=== PATIENT | female | born 2000 | race Caucasian/White ===

== ENCOUNTER 2018-12-27 19:26 | Emergency (ER) | payer BC ==
[2018-12-27] MEDS ORDERED: Phenazopyridine 95 MG Tab PO ONE (20:00)
[2018-12-27] MEDS ORDERED: Acetaminophen/HYDROcodone 325-5 MG Tab PO ONE (20:06)
[2018-12-27] MEDS ORDERED: cefTRIAXone 1 GM Vial IM ONE (20:13)
[2018-12-27] MEDS ORDERED: Lidocaine 1% 2 ML ONE (20:29)
[2018-12-27] MEDS ORDERED: cefTRIAXone 1 GM, Lidocaine 1% 2.1 ML IM SCH ×2 (20:45)
--- NOTE | 2018-12-27 20:55 | EDM.PDOC ---
ED HPI GENERAL MEDICAL PROBLEM - General Chief Complaint: Genitourinary Problem Stated Complaint: LOWER RIGHT SIDE BACK PAIN Time Seen by Provider: 12/27/18 19:48 Source of Information: Reports: Patient History Limitations: Reports: No Limitations - History of Present Illness INITIAL COMMENTS - FREE TEXT/NARRATIVE: 18 y/o female presents to ER with cc dysuria for the past 3 days. She denies fever or chills. She does report right lower back pain. She has been taking AZO while did help some. Onset Date: 12/24/18 Onset Time: 16:00 Duration: Getting Worse Location: Reports: Back Quality: Reports: Ache, Burning Severity: Mild Improves with: Reports: None Worsens with: Reports: None Associated Symptoms: Reports: Other (dysuria). Denies: Fever/Chills, Loss of Appetite, Nausea/Vomiting Right Flank Pain Score (Numeric/FACES): 6 - Related Data Allergies Allergy/AdvReac Type Severity Reaction Status Date / Time amoxicillin Allergy Rash Verified 12/27/18 19:44 Home Meds: Home Meds Acetaminophen with Codeine [Tylenol with Codeine #3 Tablet] 1 - 2 each PO Q6HR PRN 3 Days #16 tablet 12/27/18 [Rx] Escitalopram [Lexapro] 20 mg PO DAILY 12/27/18 [History] Nitrofurantoin Monohyd/M-Cryst [Macrobid 100 mg Capsule] 100 mg PO BID 7 Days # 14 capsule 12/27/18 [Rx] Norgestimate-Ethinyl Estradiol [Alleghany-Linyah 28 Tablet] 1 tab PO DAILY 12/27/18 [ History] Phenazopyridine HCl [Pyridium] 200 mg PO BID PRN 4 Days #8 tablet 12/27/18 [Rx] buPROPion [Wellbutrin] 75 mg PO DAILY 12/27/18 [History] Past Medical History - Past Health History Medical/Surgical History: Denies Medical/Surgical History Psychiatric History: Reports: Anxiety, Depression - Past Surgical History HEENT Surgical History: Reports: Oral Surgery, Tonsillectomy Social & Family History - Family History Family Medical History: Noncontributory - Tobacco Use Smoking Status *Q: Never Smoker - Caffeine Use Caffeine Use: Reports: Coffee - Recreational Drug Use Recreational Drug Use: No ED ROS GENERAL - Review of Systems Review Of Systems: See Below Constitutional: Denies: Fever, Chills HEENT: Reports: No Symptoms Respiratory: Reports: No Symptoms Cardiovascular: Reports: No Symptoms Endocrine: Reports: No Symptoms GI/Abdominal: Denies: Abdominal Pain : Reports: Dysuria Musculoskeletal: Reports: Back Pain (right lower back pain) Skin: Reports: No Symptoms Neurological: Reports: No Symptoms Psychiatric: Reports: No Symptoms Hematologic/Lymphatic: Reports: No Symptoms Immunologic: Reports: No Symptoms ED EXAM, GI/ABD - Physical Exam Exam: See Below Exam Limited By: No Limitations General Appearance: Alert, WD/WN, No Apparent Distress Respiratory/Chest: No Respiratory Distress, Lungs Clear, Normal Breath Sounds, No Accessory Muscle Use, Chest Non-Tender Cardiovascular: Normal Peripheral Pulses, Regular Rate, Rhythm, No Edema, No Gallop, No JVD, No Murmur, No Rub GI/Abdominal Exam: Normal Bowel Sounds, Non-Tender, No Organomegaly, No Distention, No Abnormal Bruit, No Mass, Pelvis Stable Back Exam: Normal Inspection, Full Range of Motion, Other (right lower back tenderness noted. ) Extremities: Normal Inspection, Normal Range of Motion, Non-Tender, No Pedal Edema, Normal Capillary Refill Neurological: Alert, Oriented, Normal Cognition, Normal Gait, No Motor/Sensory Deficits Psychiatric: Normal Affect, Normal Mood, Tearful, Other (crying appears to be in pain. ) Skin Exam: Warm, Dry, Intact, Normal Color, No Rash Lymphatic: No Adenopathy Course - Vital Signs Last Recorded V/S: Last Vital Signs Temp 98.2 F 12/27/18 19:41 Pulse 94 12/27/18 19:41 Resp 18 12/27/18 19:41 BP 152/68 H 12/27/18 19:41 Pulse Ox 97 12/27/18 19:41 - Orders/Labs/Meds Orders: Active Orders 24 hr Category Date Time Status cefTRIAXone [Rocephin] 1 gm Med 12/27/18 20:45 Active Lidocaine 1% [Xylocaine 1%] 2.1 ml IM Q24H Medication Orders Ceftriaxone Sodium 1 gm/ (Lidocaine HCl 2.1 ml) 0 gm IM Q24H VERNA Last Admin: 12/27/18 20:37 Dose: 1 inj Labs: Laboratory Tests 12/27/18 12/27/18 Range/Units 19:50 19:50 Urine Color Yellow (Yellow) Urine Appearance Slt cloudy H (Clear) Urine pH 6.5 (5.0-8.0) Ur Specific [place]rtle 1.020 (1.005-1.030) Urine Protein 3+ H (Negative) Urine Glucose (UA) Negative (Negative) Urine Ketones 1+ H (Negative) Urine Occult Blood 3+ H (Negative) Urine Nitrite Negative (Negative) Urine Bilirubin Negative (Negative) Urine Urobilinogen 0.2 (0.2-1.0) Ur Leukocyte Esterase 2+ H (Negative) Urine RBC 5-10 H (0-5) /hpf Urine WBC 50-75 H (0-5) /hpf Urine WBC Clumps Few (NOT SEEN) /hpf Ur Epithelial Cells 0-5 (0-5) /hpf Urine Bacteria Moderate H (FEW) /hpf Urine Mucus Rare (FEW) /hpf Urine HCG, Qual Negative (NEGATIVE) Meds: Medications Generic Name Dose Route Start Last Admin Trade Name Freq PRN Reason Stop Dose Admin Ceftriaxone Sodium 1 gm/ 0 gm 12/27/18 20:45 12/27/18 20:37 Lidocaine HCl 2.1 ml IM 1 inj Q24H VERNA Administration Discontinued Medications Generic Name Dose Route Start Last Admin Trade Name Freq PRN Reason Stop Dose Admin Hydrocodone Bitart/Acetaminophen 1 tab 12/27/18 20:06 12/27/18 20:12 Dalton 325-5 Mg PO 12/27/18 20:07 1 tab ONETIME ONE Administration Ceftriaxone Sodium 1 gm 12/27/18 20:13 Rocephin IM 12/27/18 20:14 ONETIME ONE Lidocaine HCl Confirm 12/27/18 20:29 12/27/18 20:39 Xylocaine-Mpf 1% Administered 12/27/18 20:30 Not Given Dose 2 mls @ as directed .ROUTE .STK-MED ONE Phenazopyridine HCl 95 mg 12/28/18 09:00 Urinary Pain Relief PO TIDPC VERNA Phenazopyridine HCl 95 mg 12/27/18 20:00 12/27/18 20:12 Urinary Pain Relief PO 12/27/18 20:01 95 mg ONETIME ONE Administration - Re-Assessments/Exams Free Text/Narrative Re-Assessment/Exam: 12/27/18 20:51 18 y/o female presents to ER with cc dysuria for the past 3 days. Her urinalysis is consistent with UTI. + 3 protein, + 3 blood + 1 ketone + 2 leukocyte esterase 50 -75 WBC. She received Rocephin, Pyridium and Dalton and her condition improved. I will discharge home with Macrobid for outpatient antibiotic therapy. I will discharge home with Tylenol # 3 for pain. I instructed her not to take this medication and drink, drive or operate machinery while taking this medications. Instructed her to follow up with her PCP. She verbalized understanding and is comfortable with plan for discharge. Departure - Departure Time of Disposition: 20:55 Disposition: Home, Self-Care 01 Condition: Good Clinical Impression: UTI, Urinary tract infectious disease - Discharge Information Prescriptions: Acetaminophen with Codeine [Tylenol with Codeine #3 Tablet] 1 - 2 each PO Q6HR PRN 3 Days #16 tablet PRN Reason: Pain (Mild 1-3) Nitrofurantoin Monohyd/M-Cryst [Macrobid 100 mg Capsule] 100 mg PO BID 7 Days # 14 capsule Phenazopyridine HCl [Pyridium] 200 mg PO BID PRN 4 Days #8 tablet PRN Reason: Dysuria Referrals: Cheyenne Joshi, PANEL LAMINATOR [Primary Care Provider] - Additional Instructions: You have been diagnosis with UTI. Take Macrobid as directed. Take Tylenol # 3 as needed for pain. While taking this medication, do not drink, drive or operate machinery. Follow up with your PCP. Return to the ER for any new or acute worsening symptoms. - My Orders Last 24 Hours: My Active Orders 12/27/18 20:45 cefTRIAXone [Rocephin] 1 gm Lidocaine 1% [Xylocaine 1%] 2.1 ml IM Q24H - Assessment/Plan Last 24 Hours: My Active Orders 12/27/18 20:45 cefTRIAXone [Rocephin] 1 gm Lidocaine 1% [Xylocaine 1%] 2.1 ml IM Q24H
[2018-12-28] MEDS ORDERED: Phenazopyridine 95 MG Tab PO SCH (09:00)
== END 2018-12-27 21:05 | disposition home or self-care (01) ==
LOC: JD.ED 19:26
DX: N39.0 Urinary tract infection, site not specified (principal); F41.9 Anxiety disorder, unspecified; F32.9 Major depressive disorder, single episode, unspecified; Z88.1 Allergy status to other antibiotic agents
CPT/HCPCS: 81001; 81025; 96372; 99284; A9270; J0696; J2001; 99283

== ENCOUNTER 2018-12-28 09:09 | Emergency (ER) | payer BC ==
[2018-12-28] MEDS ORDERED: Ketorolac 30 MG/ML SDV IM ONE (09:47)
[2018-12-28] MEDS ORDERED: Ondansetron 4 MG Tab.DIS PO ONE (09:47)
[2018-12-28] MEDS ORDERED: Ketorolac 30 MG/ML SDV IVPUSH ONE (09:55)
[2018-12-28] MEDS ORDERED: Ondansetron 4 MG/2 ML SDV IVPUSH ONE (09:55)
--- NOTE | 2018-12-28 09:58 | EDM.PDOC ---
ED HPI GENERAL MEDICAL PROBLEM - General Chief Complaint: Abdominal Pain Stated Complaint: ABDOMINAL PAIN Time Seen by Provider: 12/28/18 09:27 Source of Information: Reports: Patient History Limitations: Reports: No Limitations - History of Present Illness INITIAL COMMENTS - FREE TEXT/NARRATIVE: 18 yo F comes in today after being diagnosed with UTI last night (sent home with Macrobid and Tylenol #3) with new onset sharp substernal/epigastric pain. She states the pain started this morning after she woke up, describes it as 8-9/ 10 sharp pain that randomly comes and goes, certain laying positions can make it feel better at times, nothing makes it worse. She did try her Tylenol #3 that was prescribed yesterday with no relief. She has not eaten anything new recently and has no h/o gastric reflux or GERD. Never had a pain like this before. She has not eaten anything today but was able to drink some water. She also c/o F/C (temperature not taken at home and is 98.7 here), nausea and SOB d/ t pleuritic pain. She denies vomiting, diarrhea, constipation, or any other symptoms at this time. Last normal BM was yesterday AM. No recent trauma. No history of abdominal surgeries. PCP is SAUL Jones. Epigastric Pain Score (Numeric/FACES): 10 - Related Data Allergies Allergy/AdvReac Type Severity Reaction Status Date / Time amoxicillin Allergy Rash Verified 12/28/18 09:29 Home Meds: Home Meds Acetaminophen with Codeine [Tylenol with Codeine #3 Tablet] 1 - 2 each PO Q6HR PRN 3 Days #16 tablet 12/27/18 [Rx] Escitalopram [Lexapro] 20 mg PO DAILY 12/27/18 [History] Nitrofurantoin Monohyd/M-Cryst [Macrobid 100 mg Capsule] 100 mg PO BID 7 Days # 14 capsule 12/27/18 [Rx] Norgestimate-Ethinyl Estradiol [Rutherford-Linyah 28 Tablet] 1 tab PO DAILY 12/27/18 [ History] Phenazopyridine HCl [Pyridium] 200 mg PO BID PRN 4 Days #8 tablet 12/27/18 [Rx] buPROPion [Wellbutrin] 75 mg PO DAILY 12/27/18 [History] Ondansetron [Zofran ODT] 4 mg PO Q6H PRN #8 tab.dis 12/28/18 [Rx] Past Medical History - Past Health History Medical/Surgical History: Denies Medical/Surgical History Psychiatric History: Reports: Anxiety, Depression - Past Surgical History HEENT Surgical History: Reports: Oral Surgery, Tonsillectomy Social & Family History - Family History Family Medical History: Noncontributory - Tobacco Use Smoking Status *Q: Never Smoker - Caffeine Use Caffeine Use: Reports: Coffee - Recreational Drug Use Recreational Drug Use: No ED ROS GENERAL - Review of Systems Review Of Systems: See Below Constitutional: Reports: Fever (no documented fever), Chills, Decreased Appetite (d/t nausea) HEENT: Reports: No Symptoms Respiratory: Reports: Shortness of Breath (d/t chest pain), Pleuritic Chest Pain. Denies: Cough Cardiovascular: Reports: Chest Pain (epigastric/substernal). Denies: Blood Pressure Problem, Palpitations Endocrine: Reports: No Symptoms GI/Abdominal: Reports: Abdominal Pain (epigastric/substernal), Decreased Appetite (d/t nausea), Nausea. Denies: Constipation, Diarrhea, Hematochezia, Vomiting : Reports: No Symptoms Musculoskeletal: Reports: No Symptoms Skin: Reports: No Symptoms Neurological: Reports: No Symptoms Psychiatric: Reports: No Symptoms ED EXAM, GI/ABD - Physical Exam Exam: See Below Exam Limited By: No Limitations General Appearance: Alert, WD/WN, Moderate Distress Eyes: Bilateral: Normal Appearance, EOMI Ears: Normal External Exam, Hearing Grossly Normal Nose: Normal Inspection, Normal Mucosa, No Blood Throat/Mouth: Normal Inspection, Normal Lips, Normal Teeth, Normal Gums, Normal Oropharynx, Normal Voice, No Airway Compromise Head: Atraumatic, Normocephalic Neck: Normal Inspection, Supple, Non-Tender, Full Range of Motion Respiratory/Chest: No Respiratory Distress, Lungs Clear, Normal Breath Sounds, No Accessory Muscle Use, Other (Chest TTP substernal). No: Wheezing Cardiovascular: Normal Peripheral Pulses, Regular Rate, Rhythm, No Edema, No Gallop, No JVD, No Murmur, No Rub GI/Abdominal Exam: Soft, No Organomegaly, No Distention, No Abnormal Bruit, No Mass, Pelvis Stable, Tender (epigastric/substernal), Abnormal Bowel Sounds ( hyperactive). No: Guarding, Rigid, Rebound Back Exam: Normal Inspection Neurological: Alert, Oriented, CN II-XII Intact, Normal Cognition, Normal Gait, Normal Reflexes, No Motor/Sensory Deficits Psychiatric: Tearful Skin Exam: Warm, Dry, Intact, Normal Color, No Rash Course - Vital Signs Last Recorded V/S: Last Vital Signs Temp 98.7 F 12/28/18 09:26 Pulse 71 12/28/18 09:26 Resp 16 12/28/18 09:26 BP 138/74 12/28/18 09:26 Pulse Ox 97 12/28/18 09:26 - Orders/Labs/Meds Orders: Active Orders 24 hr Category Date Time Status EKG Documentation Completion [RC] ASDIRECTED Care 12/28/18 09:50 Active CBC WITH AUTO DIFF [HEME] Stat Lab 12/28/18 09:45 Results EKG 12 Lead [EK] Stat Ther 12/28/18 09:49 Ordered Labs: Laboratory Tests 12/28/18 12/28/18 Range/Units 09:45 09:45 WBC 9.29 (3.98-10.04) K/mm3 RBC 4.05 (3.98-5.22) M/mm3 Hgb 12.3 (11.2-15.7) gm/L Hct 37.5 (34.1-44.9) % MCV 92.6 (79.4-94.8) fl MCH 30.4 (25.6-32.2) pg MCHC 32.8 (32.2-35.5) g/dl RDW Std Deviation 40.9 (36.4-46.3) fL Plt Count 212 (182-369) K/mm3 MPV 10.8 (9.4-12.3) fl Neut % (Auto) 74.3 H (34.0-71.1) % Lymph % (Auto) 16.9 L (19.3-51.7) % [place]uther[place] % (Auto) 8.0 (4.7-12.5) % Eos % (Auto) 0.4 L (0.7-5.8) Baso % (Auto) 0.2 (0.1-1.2) % Neut # (Auto) 6.90 H (1.56-6.13) K/mm3 Lymph # (Auto) 1.57 (1.18-3.74) K/mm3 [place] # (Auto) 0.74 H (0.24-0.36) K/mm3 Eos # (Auto) 0.04 (0.04-0.36) K/mm3 Baso # (Auto) 0.02 (0.01-0.08) K/mm3 Sodium 140 (136-145) mEq/L Potassium 3.7 (3.5-5.1) mEq/L Chloride 104 (98-107) mEq/L Carbon Dioxide 27 (21-32) mEq/L Anion Gap 12.7 (5-15) BUN 7 (7-18) mg/dL Creatinine 0.8 (0.55-1.02) mg/dL Est Cr Clr Drug Dosing 105.01 mL/min Estimated GFR (MDRD) > 60 (>60) mL/min BUN/Creatinine Ratio 8.8 L (14-18) Glucose 90 (74-106) mg/dL Calcium 8.9 (8.5-10.1) mg/dL Total Bilirubin 1.2 H (0.2-1.0) mg/dL AST 29 (15-37) U/L ALT 27 (14-59) U/L Alkaline Phosphatase 54 (46-116) U/L Troponin I < 0.017 (0.00-0.056) ng/mL C-Reactive Protein 4.9 H* (<1.0) mg/dL Total Protein 7.1 (6.4-8.2) g/dl Albumin 3.4 (3.4-5.0) g/dl Globulin 3.7 gm/dL Albumin/Globulin Ratio 0.9 L (1-2) Lipase 56 L (73-393) U/L Meds: Medications Discontinued Medications Generic Name Dose Route Start Last Admin Trade Name Freq PRN Reason Stop Dose Admin Ketorolac Tromethamine 30 mg 12/28/18 09:47 Toradol IM 12/28/18 09:48 ONETIME ONE Ketorolac Tromethamine 30 mg 12/28/18 09:55 12/28/18 10:01 Toradol IVPUSH 12/28/18 09:56 30 mg ONETIME ONE Administration Ondansetron HCl 4 mg 12/28/18 09:47 Zofran Odt PO 12/28/18 09:48 ONETIME ONE Ondansetron HCl 4 mg 12/28/18 09:55 12/28/18 10:00 Zofran IVPUSH 12/28/18 09:56 4 mg ONETIME ONE Administration - Re-Assessments/Exams Free Text/Narrative Re-Assessment/Exam: 12/28/18 09:50 Chest pain r/o: EKG, CXR, Troponin Abdominal pain r/o: CBC, CMP, CRP, Lipase Zofran and Toradol ordered 12/28/18 10:44 CBC WNL CMP shows slightly elevated Bilirubin 1.2 CRP 4.9 (likely 2/2 UTI) Lipase low at [address] Nash and myself- nothing acute seen, part of abdomen seen does not show any constipation EKG reviewed by Dr. Nash and myself- nothing acute seen. Pt is feeling better now. She is stable to go home. Emergency has been r/o at this time. Have her f/u with PCP and be on the look out for any worsening symptoms, such as RUQ pain. Departure - Departure Time of Disposition: 10:46 Disposition: Home, Self-Care 01 Condition: Good Clinical Impression: Mid sternal chest pain - Discharge Information *PRESCRIPTION DRUG MONITORING PROGRAM REVIEWED*: Not Applicable *COPY OF PRESCRIPTION DRUG MONITORING REPORT IN PATIENT PATY: Not Applicable Prescriptions: Ondansetron [Zofran ODT] 4 mg PO Q6H PRN #8 tab.dis PRN Reason: Nausea Instructions: Chest Wall Pain, [id number], Nonspecific Chest Pain, Easy-to- Read Referrals: Cheyenne Joshi FRANCHISE SALES DIRECTOR [Primary Care Provider] - Forms: ED Department Discharge Additional Instructions: You were seen in the ED today for mid chest pain that started randomly this morning. At this time, your cardiac, lung, and infectious workup have been negative so there is no acute emergency at this time. You are feeling better after taking a strong anti-inflammatory and anti-nausea medication while here. Recommend you take over the counter ibuprofen (with food) if the pain does come back. Will send you home with anti-nausea medication to take as needed. Recommend follow up with your primary care provider. Please return to ED if new or worsening symptoms, such as right upper quadrant pain, which could mean a gallbladder issue. - My Orders Last 24 Hours: My Active Orders 12/28/18 09:45 CBC WITH AUTO DIFF [HEME] Stat 12/28/18 09:49 EKG 12 Lead [EK] Stat 12/28/18 09:50 EKG Documentation Completion [RC] ASDIRECTED - Assessment/Plan Last 24 Hours: My Active Orders 12/28/18 09:45 CBC WITH AUTO DIFF [HEME] Stat 12/28/18 09:49 EKG 12 Lead [EK] Stat 12/28/18 09:50 EKG Documentation Completion [RC] ASDIRECTED
--- NOTE | 2018-12-28 10:50 | CR ---
Chest: Two views of the chest were obtained. Comparison: No prior chest x-ray. Heart size and mediastinum are normal. Lungs are clear. Bony structures are unremarkable. Impression: 1. Nothing acute is seen on two-view chest x-ray. Diagnostic code #1
== END 2018-12-28 11:21 | disposition home or self-care (01) ==
LOC: JD.ED 09:09
DX: R07.2 Precordial pain (principal); F41.9 Anxiety disorder, unspecified; F32.9 Major depressive disorder, single episode, unspecified; Z79.899 Other long term (current) drug therapy; Z88.1 Allergy status to other antibiotic agents
CPT/HCPCS: 36415; 71046; 80053; 83690; 84484; 85025; 86140; 93005; 96374; 96375; 99285; J1885; J2405; 93010; 99284

== ENCOUNTER 2024-12-24 23:58 | Emergency (ER) | payer SELFPAY ==
[2024-12-25] MEDS: diphenhydrAMINE 50 MG/ML SDV IVPUSH ONE (00:32)
[2024-12-25] MEDS: Sodium Chloride 0.9% 1,000 ML IV ONE (00:32)
[2024-12-25] MEDS: Sodium Chloride 0.9% 10 ML Syringe FLUSH PRN (00:32)
[2024-12-25] MEDS: methylPREDNISolone Sodium Succinate 125 MG/2 ML SDV IVPUSH ONE (00:32)
[2024-12-25 00:46] LABS: BASOPHILS PERCENT AUTO 0.2 % (0.0-1.0); EOSINOPHILS PERCENT AUTO 0.3 % (0.0-6.0); HEMATOCRIT 36.9 % (37.0-47.0); IMMATURE GRAN ABSOLUTE AUTO 0.05 K/mm3 (0.00-0.05); IMMATURE GRAN PERCENT AUTO 0.4 % (0.0-0.4); LYMPHOCYTES ABSOLUTE AUTO 1.8 K/mm3 (1.0-4.8); MEAN CORPUSCULAR HEMOGLOBIN 30.9 pg (28.0-32.0); MEAN CORPUSCULAR HGB CONC 32.5 g/dl (32.0-36.0); MEAN CORPUSCULAR VOLUME 95.1 fl (83.0-99.0); MONOCYTES ABSOLUTE AUTO 0.6 K/mm3 (0.0-0.8); MONOCYTES PERCENT AUTO 4.8 % (0.0-8.0); NEUTROPHILS ABSOLUTE AUTO 9.7 K/mm3 (1.8-7.7); NEUTROPHILS PERCENT AUTO 79.3 % (41.0-71.0); PLATELET COUNT,PLT 199 K/mm3 (150-400); RED BLOOD CELL COUNT 3.88 M/mm3 (4.10-5.30); WHITE BLOOD CELL COUNT,WBC 12.26 K/mm3 (3.9-11.3)
[2024-12-25 01:10] LABS: ANION GAP 10.3 (5-15); BILIRUBIN TOTAL 0.4 mg/dL (0.2-1.0); BUN/CREATININE RATIO 12.2 (14-18); CALCIUM 8.5 mg/dL (8.5-10.1); CREATININE 0.9 mg/dL (0.55-1.02); EST CRCL DRUG DOSING (CG) 88.68 mL/min; MAGNESIUM 1.4 mg/dL (1.8-2.4); POTASSIUM,K 4.3 mEq/L (3.5-5.1); PROTEIN TOTAL,TP 5.9 g/dl (6.4-8.2)
[2024-12-25] MEDS: Magnesium Oxide 400 MG Tab PO ONE (03:11)
== END 2024-12-25 03:18 | disposition home or self-care (01) ==
LOC: JD.ED 23:58
DX: T78.40XA Allergy, unspecified, initial encounter (principal); R21 Rash and other nonspecific skin eruption; E83.42 Hypomagnesemia; Z88.0 Allergy status to penicillin; Z79.899 Other long term (current) drug therapy; Z86.16 Personal history of COVID-19
CPT/HCPCS: 36415; 80053; 83690; 83735; 84703; 85025; 96361; 96374; 96375; 99284; A9270; J1200; J2919; J7030

== ENCOUNTER 2025-06-13 00:53 | Emergency (ER) | payer BC ==
[2025-06-13] MEDS: methylPREDNISolone Sodium Succinate 125 MG/2 ML SDV IM ONE (01:43)
== END 2025-06-13 03:40 | disposition home or self-care (01) ==
LOC: JD.ED 00:53
DX: T78.2XXA Anaphylactic shock, unspecified, initial encounter (principal); Z88.0 Allergy status to penicillin; Z79.899 Other long term (current) drug therapy; Z86.16 Personal history of COVID-19
CPT/HCPCS: 96372; 99283; A9270-GY; J2919; Q0163